=== PATIENT | female | born 1980 | race Caucasian/White ===

== ENCOUNTER 2017-07-08 16:36 | Emergency (ER) | payer BC ==
[~2017-07-08 16:36] MED LIST: ISOVUE-370 76%-LOCM 1 ML ONE; Iopamidol 370 76% 50 ML VIAL FS ONE
[2017-07-08] MEDS ORDERED: Ondansetron HCl/PF 4 MG/2 ML Vial ONE (17:47)
[2017-07-08 18:02] LABS: #Lymphocytes 0.5 thou/uL (1.20-3.40); #Monocytes 0.2 thou/uL (0.11-0.59); #Neutrophils 8.3 thou/uL (1.40-6.50); %Basophils 0.2 % (0.0-1.0); %Eosinophils 0.5 % (0.0-10.0); %Monocytes 2.6 % (0.0-10.0); Hematocrit 37.2 % (36.0-47.0); Mean Platelet Volume 5.9 fL (7.4-10.4); Red Blood Cell (RBC) Count 4.33 mill/uL (4.20-5.40)
[2017-07-08 18:25] LABS: ALT (SGPT) 67 U/L (8-55); AST (SGOT) 188 U/L (5-34); Alkaline Phosphatase 122 U/L (40-150); Anion Gap 10 mmol/L (10-20); BUN (Urea Nitrogen) 17 mg/dL (7.0-18.7); Bilirubin, Total 1.1 mg/dL (0.2-1.2); Calc. Creatinine Clearance 0 mL/min (70-130); Calcium 9.4 mg/dL (7.8-10.44); Carbon Dioxide 24 mmol/L (22-29); Chloride 105 mmol/L (98-107); Estimated GFR-MDRD 84; Globulin 3.2 g/dL (2.4-3.5); Protein, Total 7.2 g/dL (6.0-8.3)
[2017-07-08 19:30] LABS: Bilirubin Negative (Negative); Blood, Urine Negative (Negative); Glucose, Urine (Dipstick) Negative (Negative); Ketone, Urine Negative (Negative); Nitrite Negative (Negative); Protein, Urine (Dipstick) Negative (Neg-Trace)
[2017-07-08] MEDS ORDERED: Promethazine HCl 25 MG/ML VIAL ONE (19:37)
[2017-07-08] MEDS ORDERED: Ketorolac Tromethamine 30 MG/ML VIAL ONE (19:37)
--- NOTE | 2017-07-08 22:51 | CT ---
CONTRAST ENHANCED CT IMAGES ABDOMEN AND PELVIS 07/08/17 HISTORY: 37-year-old presents with history of vomiting and diarrhea. Contrast enhanced CT images of the abdomen and pelvis demonstrate the lung bases to be unremarkable. No evidence of free intraperitoneal air seen. The liver is unremarkable except for a small hepatic cyst along the posterior dome of the liver. The gallbladder has been surgically removed. The spleen is unremarkable. Adrenal glands and kidneys are u nremarkable. The pancreas is unremarkable. No dilated loops of small bowel is seen. A normal appendix is seen. The colon demonstrates no evidence of dilatation. Surgical james seen in the stomach. No evidence of periaortic lymphadenopathy seen. An intrauterine device is present. IMPRESSION: Normal CT of abdomen and pelvis. POS: SEAN
== END 2017-07-08 23:04 | disposition home or self-care (01) ==
LOC: ERS 16:36
DX: K52.9 Noninfective gastroenteritis and colitis, unspecified (principal); F41.9 Anxiety disorder, unspecified; F32.9 Major depressive disorder, single episode, unspecified; F98.8 Other specified behavioral and emotional disorders with onset usually occurring in childhood and adolescence
CPT/HCPCS: 36415; 74177; 80053; 81003; 83690; 84703; 85025; 96361; 96365; 96375; J1885; J2405; J2550

== ENCOUNTER 2020-04-13 12:28 | Outpatient (CLI) | payer OTHER | END 2020-04-13 12:29 | disposition home or self-care (01) | LOC: ULT 12:28 | PROVIDERS: ATTEND Internal Medicine | DX: R01.1 Cardiac murmur, unspecified (principal); I08.1 Rheumatic disorders of both mitral and tricuspid valves | CPT/HCPCS: 93306 ==

== ENCOUNTER 2022-09-26 13:08 | Outpatient (CLI) | payer BC | END 2022-09-26 13:09 | disposition home or self-care (01) | LOC: BICRAD 13:08 | PROVIDERS: ATTEND Internal Medicine Rheumatology | DX: M25.50 Pain in unspecified joint (principal); M54.2 Cervicalgia; M45.0 Ankylosing spondylitis of multiple sites in spine; M46.1 Sacroiliitis, not elsewhere classified; M79.671 Pain in right foot; M47.812 Spondylosis without myelopathy or radiculopathy, cervical region | CPT/HCPCS: 36415; 72050; 72220; 80053; 80074; 81001; 82570; 82607; 82728; 84156; 84439; 84443; 85025; 85652; 86037; 86038; 86140; 86225 ==

== ENCOUNTER 2023-02-04 13:11 | Outpatient (CLI) | payer BC | END 2023-02-04 13:12 | disposition home or self-care (01) | LOC: BICMAMMO 13:11 | PROVIDERS: ATTEND Internal Medicine | DX: N64.89 Other specified disorders of breast (principal) | CPT/HCPCS: G0279 ==

== ENCOUNTER 2023-09-09 07:30 | Inpatient (IN) | payer BC ==
[2023-09-16 15:05] VITALS: BMI 31.8
[2023-09-17] MEDS ORDERED: CEFAZOLIN 2 GM VIAL ONE (06:51)
[2023-09-17] MEDS ORDERED: Sodium Chloride 0.9% 100 ML ONE (06:51)
[2023-09-17] MEDS ORDERED: Lidocaine 1% MPF 2 ML VIAL ONE (06:51)
[2023-09-17] MEDS ORDERED: EPINEPHrine 1 MG/ML VIAL ONE (06:55)
[2023-09-17] MEDS ORDERED: Bupivacaine 0.25% HCL 30 ML VIAL ONE (06:55)
[2023-09-17] MEDS ORDERED: fentaNYL PF 100 MCG/2 ML SYRINGE ONE ×2 (07:00→09:15)
[2023-09-17] MEDS ORDERED: PROPOFOL 20 ML ONE (07:00)
[2023-09-17] MEDS ORDERED: Ketamine In 0.9 % NaCl 50 MG/5 ML SYRINGE ONE (07:00)
[2023-09-17] MEDS ORDERED: Lidocaine 1% PF 5 ML VIAL ONE (07:03)
[2023-09-17] MEDS ORDERED: Rocuronium Bromide 10 MG/ML (10ML VIAL) ONE (07:03)
[2023-09-17] MEDS ORDERED: Propofol 500 MG/50 ML VIAL ONE (07:05)
[2023-09-17] MEDS ORDERED: Famotidine/PF 20 mg/2ml Vial ONE (07:15)
[2023-09-17] MEDS ORDERED: Dexamethasone 20 MG/5 ML VIAL ONE (07:44)
[2023-09-17] MEDS ORDERED: Esmolol 100 MG/10 ML VIAL ONE (07:44)
[2023-09-17] MEDS ORDERED: ePHEDrine Sulfate 50 MG/10 ML VIAL ONE (07:51)
[2023-09-17] MEDS ORDERED: Dexmedetomidine 200 MCG/2 ML VIAL ONE (08:18)
[2023-09-17] MEDS ORDERED: Ondansetron PF 4 MG/2 ML Vial ONE (09:11)
[2023-09-17] MEDS ORDERED: Ondansetron PF 4 MG/2 ML Vial IVP PRN ×2 (09:13→12:47)
[2023-09-17] MEDS ORDERED: diphenhydrAMINE 50 MG/ML VIAL IVP PRN ×2 (09:13→12:47)
[2023-09-17] MEDS ORDERED: Ondansetron HCl/PF 4 MG/2 ML Vial IVP PRN (09:13)
[2023-09-17] MEDS ORDERED: diphenhydrAMINE 50 MG/ML VIAL IM PRN (09:13)
[2023-09-17] MEDS ORDERED: FENTANYL 500 MCG/10 ML VIAL 2,000 MCG in Sodium Chloride 0.9% 60 ML IV PRN (09:13)
[2023-09-17] MEDS ORDERED: Naloxone HCl 0.4 mg/ml Vial IV PRN (09:13)
[2023-09-17] MEDS ORDERED: Promethazine HCl 25 MG/ML VIAL IM PRN ×3 (09:13→12:47)
[2023-09-17] MEDS ORDERED: diphenhydrAMINE 25 MG CAP PO PRN (09:13)
[2023-09-17] MEDS ORDERED: Communication Order-Pharmacy FS SCH (09:15)
[2023-09-17] MEDS ORDERED: SUGAMMADEX SODIUM 200 MG/2 ML VIAL ONE (09:18)
[2023-09-17] MEDS ORDERED: fentaNYL 50 mcg/mL 1 mL Vial ONE ×2 (10:23→11:57)
[2023-09-17] MEDS ORDERED: Labetalol HCl 100 MG/20 ML VIAL ONE (12:00)
[2023-09-17] MEDS ORDERED: Ipratropium/Albuterol 3 ML NEB NEB PRN (12:47)
[2023-09-17] MEDS ORDERED: Hydrocodone-Acetamin 15 ML UDCUP PO PRN (12:47)
[2023-09-17] MEDS ORDERED: Glucagon 1 MG/ML KIT IM PRN (12:47)
[2023-09-17] MEDS ORDERED: hydrALAZINE 20 MG/ML VIAL SLOW IVP PRN (12:47)
[2023-09-17] MEDS ORDERED: Dextrose 50% Abboject 50 ML SYRINGE SLOW IVP PRN (12:47)
[2023-09-17] MEDS ORDERED: Dextrose 5% in Water 1,000 ML IV PRN (12:47)
[2023-09-17] MEDS: Acetaminophen 650 MG/20.3 ML UDCUP PO SCH (13:28)
[2023-09-17] MEDS: D5 1/2 NS w/20 mEq KCL 1,000 ML IV SCH (17:33)
[2023-09-17] MEDS: FLU VACC QS2023-24(6MOS UP)/PF 60 MCG/0.5 ML SYRINGE IM ONE (17:51)
[2023-09-17] MEDS: Ketorolac Tromethamine 30 MG (1 mL) VIAL IVP SCH (21:03)
[2023-09-17] MEDS: DULoxetine 30 MG CAP PO SCH (21:04)
[2023-09-18 04:43] LABS: #Neutrophils 9.9 thou/uL (1.40-6.50); %Basophils 0.2 % (0.0-1.0); %Lymphocytes 18.1 % (21.0-51.0); %Monocytes 7.2 % (0.0-10.0); %Neutrophils 74.1 % (42.0-75.0); Hemoglobin 10.7 g/dL (12.0-16.0); Mean Corpuscular HGB CONC 33.4 g/dL (32.0-36.0); Mean Corpuscular Volume 92.8 fl (78.0-98.0); Mean Platelet Volume 8.8 fL (7.4-10.4); Platelet Count 295 10x3/uL (130-400); RBC Distribution Width 13.5 % (11.5-14.5); Red Blood Cell (RBC) Count 3.45 mill/uL (4.20-5.40); White Blood Cell (WBC) Count 13.4 10x3/uL (4.8-10.8)
[2023-09-18 05:42] LABS: Anion Gap 12 mmol/L (10-20); BUN (Urea Nitrogen) 11 mg/dL (7.0-18.7); Calc. Creatinine Clearance 131 mL/min (70-130); Calcium 8.8 mg/dL (7.8-10.44); Carbon Dioxide 26 mmol/L (22-29); Chloride 106 mmol/L (98-107); Estimated GFR 96; Glucose 132 mg/dL (70-105); Potassium 4.5 mmol/L (3.5-5.1); Sodium 139 mmol/L (136-145)
[2023-09-18] MEDS: Hydrocodone-Acetamin 15 ML UDCUP PO PRN (10:32)
[2023-09-18] MEDS: Pantoprazole 40 MG VIAL IVP SCH (10:33)
[2023-09-18] MEDS: Enoxaparin 40 MG (0.4 mL) SYRINGE SC SCH (10:33)
[2023-09-18 11:26] VITALS: BP 143/78; TEMP 97.9
== END 2023-09-18 12:18 | disposition home or self-care (01) | DRG 327 ==
LOC: SURG A 09-17 06:17 → SJJU 09-17 12:40
PROVIDERS: ADMIT Surgery; ATTEND Surgery
PROC: 0D164ZA Bypass Stomach to Jejunum, Percutaneous Endoscopic Approach (ICD-10-PCS; principal; 2023-09-17)
PROC: 8E0W4CZ Robotic Assisted Procedure of Trunk Region, Percutaneous Endoscopic Approach (ICD-10-PCS; 2023-09-17)
DX: K21.00 Gastro-esophageal reflux disease with esophagitis, without bleeding (principal); K31.1 Adult hypertrophic pyloric stenosis; K44.9 Diaphragmatic hernia without obstruction or gangrene
CPT/HCPCS: 36415; 80048; 85025; 94760; C9113; J0171; J0665; J1100; J1650; J1885; J2405; J2704; J3010; J3480; J3490; S0028

== ENCOUNTER 2023-09-16 14:35 | Outpatient (CLI) | payer BC ==
[2023-09-16 15:16] LABS: #Basophils 0.1 10x3/uL (0.0-0.2); #Eosinphils 0.1 10x3/uL (0.0-0.5); #Monocytes 0.4 10x3/uL (0.0-1.1); #Neutrophils 3.8 10x3/uL (1.5-8.4); %Basophils 0.7 % (0.0-2.0); %Lymphocytes 43.5 % (18.0-47.0); %Monocytes 5.1 % (0.0-10.0); %Neutrophils 49.6 % (40.0-75.0); Hematocrit 39.1 % (34.9-44.5); Hemoglobin 13.5 g/dL (12.0-15.5); Mean Corpuscular HGB CONC 34.5 g/dL (32.0-36.0); Mean Corpuscular Hemoglobin 30.5 pg (27.0-33.0); Mean Corpuscular Volume 88.5 fl (81.6-98.3); Mean Platelet Volume 8.7 fl (7.4-10.4); Platelet Count 349 10x3/uL (150-450); RBC Distribution Width 13.3 % (11.5-14.5); Red Blood Cell (RBC) Count 4.42 10x6/uL (3.90-5.03); White Blood Cell (WBC) Count 7.7 10x3/uL (3.5-10.5)
[2023-09-16 15:36] LABS: BHCG - Serum Negative (NEGATIVE); Pregs Control Background? CLEAR/WHITE (CLR/WHITE); Pregs Control Bar Appear? YES (CONTROL BAR)
[2023-09-16 15:43] LABS: ALT (SGPT) 28 U/L (8-55); AST (SGOT) 26 U/L (5-34); Albumin 4.5 g/dL (3.5-5.0); Alkaline Phosphatase 74 U/L (40-110); Anion Gap 11 mmol/L (10-20); BUN (Urea Nitrogen) 15 mg/dL (7.0-18.7); Bilirubin, Total 0.6 mg/dL (0.2-1.2); Calc. Creatinine Clearance 0 mL/min (70-130); Calcium 9.6 mg/dL (7.8-10.44); Carbon Dioxide 25 mmol/L (22-29); Chloride 103 mmol/L (98-107); Estimated GFR 79; Globulin 2.7 g/dL (2.4-3.5); Glucose 98 mg/dL (70-105); Potassium 4.4 mmol/L (3.5-5.1); Protein, Total 7.2 g/dL (6.0-8.3); Sodium 135 mmol/L (136-145)
[2023-09-16 20:13] LABS: Hemoglobin A1c 5.4 % (4.0-6.0)
== END 2023-09-16 14:36 | disposition home or self-care (01) ==
LOC: LABBT 14:35
PROVIDERS: ATTEND Surgery
DX: Z01.812 Encounter for preprocedural laboratory examination (principal); K20.90 Esophagitis, unspecified without bleeding; K31.1 Adult hypertrophic pyloric stenosis
CPT/HCPCS: 80053; 83036; 84703; 85025